=== PATIENT | male | born 1955 | race Caucasian/White ===

== ENCOUNTER 2023-11-21 07:36 | Inpatient (IN) | payer OTHER ==
[~2023-11-21] VITALS: Ht 167.6 cm; Wt 94.8 kg
[~2023-11-21 07:36] MED LIST: AMLO5TAB92 PO; ASPI-524 PO; CARV12.548 PO; CHLO25TA2 PO; DULA1.5P SQ; GABA-531 PO; GLIP10TA11 PO; LISI20TA30 PO; METF1000 PO; METR-154 PO; PRIM50TA PO; SIMV-43 PO
[2023-11-21 07:40] VITALS: BP_SYST 128; PULSE 96; RESP 18; TEMP 96.9; O2SAT 99
[2023-11-21] MEDS: ACETAMINOPHEN 325 MG TABLET PO ONE (08:18)
[2023-11-21 08:26] LABS: ANION GAP 7 (5-15); CALCIUM 9.6 mg/dL (8.4-11.0); CARBON DIOXIDE 29 mmol/L (23-29); CHLORIDE 101 mmol/L (98-107); CREATININE 1.15 mg/dL (0.55-1.30); GFR AFRICAN AMERICAN 81 mL/min (>90); GLUCOSE 211 mg/dL (74-106); POTASSIUM 4.4 mmol/L (3.5-5.1); SODIUM SERUM 137 mmol/L (136-145); UREA NITROGEN, BLOOD 21 mg/dL (8-21)
[2023-11-21 08:27] LABS: GFR NON AFRICAN-AMERICAN 67 mL/min (>90)
[2023-11-21 08:28] LABS: BASOPHILS % (AUTO) 0.4 % (0.0-2.0); EOSINOPHILS # (AUTO) 0.1 K/uL (0.0-0.4); EOSINOPHILS % (AUTO) 1.3 % (0.0-4.0); HEMATOCRIT 38.6 % (36-54); HEMOGLOBIN 13.3 g/dL (14.0-18.0); LYMPHOCYTES # (AUTO) 0.7 K/uL (1.0-5.5); LYMPHOCYTES % (AUTO) 12.7 % (20.5-51.5); MEAN CORPUSCULAR HEMOGLOBIN 30 pg (27-31); MEAN CORPUSCULAR HGB CONC 34 % (32-36); MEAN CORPUSCULAR VOLUME 87 fL (79.0-98.0); MONOCYTES # (AUTO) 0.4 K/uL (0.0-1.0); MONOCYTES % (AUTO) 7.8 % (1.7-9.3); NEUTROPHILS # (AUTO) 4.3 K/uL (1.8-7.7); NEUTROPHILS % (AUTO) 77.8 % (40.0-70.0); PLATELET COUNT (AUTO) 161 K/uL (130-430); RED BLOOD CELL COUNT(AUTO) 4.44 MIL/uL (4.2-6.2); RED CELL DISTRIBUTION WIDTH 14.1 % (9.0-15.0); WHITE BLOOD COUNT (AUTO) 5.5 K/uL (4.8-10.8)
[2023-11-21] MEDS: dilTIAZem HCL IVP 5 MG/ML VIAL IVP ONE (08:53)
[2023-11-21] MEDS: LIDOCAINE 1% 10 MG/ML, 20 ML MDV INJ ONE (09:38)
[2023-11-21] MEDS ORDERED: ACETAMINOPHEN 325 MG TABLET PO PRN (10:45)
[2023-11-21] MEDS ORDERED: ONDANSETRON HCL 4 MG/2 ML VIAL IVP PRN (10:45)
[2023-11-21] MEDS ORDERED: NALOXONE HCL 0.4 MG/ML AMP (NARCAN) IVP PRN ×2 (10:45)
[2023-11-21] MEDS ORDERED: HYDROcodone/ACETAMIN 10-325 MG TAB PO PRN (10:45)
[2023-11-21] MEDS ORDERED: LORazepam 2 MG/ML VIAL IVP PRN (10:45)
[2023-11-21] MEDS ORDERED: DULAGLUTIDE SQ SCH (10:45)
[2023-11-21] MEDS: ASPIRIN 81 MG TAB.CHEW PO ONE (11:52)
[2023-11-21] MEDS: amLODIPine BESYLATE 5 MG TABLET PO ONE (12:35)
[2023-11-21] MEDS: CHLORTHALIDONE 25 MG TABLET (HYGROTON) PO ONE (12:36)
[2023-11-21] MEDS: NORMAL SALINE 5 ML DISP.SYRIN IVF SCH (14:03)
[2023-11-21] MEDS: GABAPENTIN 300 MG CAPSULE PO SCH (15:00)
[2023-11-21] MEDS: CARVEDILOL 12.5 MG TABLET (COREG) PO ONE (15:13)
[2023-11-21] MEDS: lisinopriL 20 MG TABLET PO ONE (15:14)
[2023-11-21 15:36] VITALS: BP_SYST 130; PULSE 69; RESP 18; TEMP 98.1; O2SAT 98
[2023-11-21 15:53] VITALS: BP_SYST 130; PULSE 69; RESP 17; TEMP 98.1; O2SAT 98
[2023-11-21 19:51] VITALS: BP_SYST 123; PULSE 65; RESP 20; TEMP 97.3; O2SAT 98
[2023-11-21] MEDS: PRIMIDONE 50 MG TABLET PO SCH (20:17)
[2023-11-21] MEDS: SIMVASTATIN 20 MG TABLET PO SCH (20:17)
[2023-11-21] MEDS: HYDROcodone/ACETAMIN 5-325 MG TAB (NORCO/ VICODIN) PO PRN (20:18)
[2023-11-21] MEDS: metFORMIN HCL 500 MG TABLET PO SCH (20:18)
[2023-11-21] MEDS: metroNIDAZOLE 500 MG TABLET PO SCH (20:18)
[2023-11-21] MEDS: INSULIN REGULAR, HUMAN 100 UNITS/ML, 3 ML VIAL (humuLIN R) SUBCUT PRN (20:23)
[2023-11-22 02:53] VITALS: BP_SYST 147; PULSE 58; RESP 18; TEMP 97.1; O2SAT 97
[2023-11-22 05:49] LABS: BASOPHILS % (AUTO) 0.4 % (0.0-2.0); EOSINOPHILS # (AUTO) 0.1 K/uL (0.0-0.4); EOSINOPHILS % (AUTO) 2.6 % (0.0-4.0); HEMATOCRIT 36.1 % (36-54); HEMOGLOBIN 12.5 g/dL (14.0-18.0); LYMPHOCYTES % (AUTO) 21.6 % (20.5-51.5); MEAN CORPUSCULAR HEMOGLOBIN 30 pg (27-31); MEAN CORPUSCULAR HGB CONC 35 % (32-36); MEAN CORPUSCULAR VOLUME 87 fL (79.0-98.0); MONOCYTES # (AUTO) 0.4 K/uL (0.0-1.0); MONOCYTES % (AUTO) 9.8 % (1.7-9.3); NEUTROPHILS % (AUTO) 65.6 % (40.0-70.0); PLATELET COUNT (AUTO) 139 K/uL (130-430); RED BLOOD CELL COUNT(AUTO) 4.16 MIL/uL (4.2-6.2); WHITE BLOOD COUNT (AUTO) 4.6 K/uL (4.8-10.8)
[2023-11-22 07:13] LABS: CALCIUM 8.6 mg/dL (8.4-11.0); POTASSIUM 3.3 mmol/L (3.5-5.1)
[2023-11-22 07:51] VITALS: BP_SYST 135; PULSE 67; RESP 18; TEMP 97.1; O2SAT 98
[2023-11-22] MEDS: ASPIRIN 81 MG TAB.CHEW PO SCH (08:33)
[2023-11-22] MEDS: amLODIPine BESYLATE 5 MG TABLET PO SCH (08:34)
[2023-11-22] MEDS: CARVEDILOL 12.5 MG TABLET (COREG) PO SCH (08:34)
[2023-11-22] MEDS: lisinopriL 20 MG TABLET PO SCH (08:34)
[2023-11-22] MEDS: CHLORTHALIDONE 25 MG TABLET (HYGROTON) PO SCH (08:35)
[2023-11-22 09:35] VITALS: O2SAT 97
[2023-11-22] MEDS: POTASSIUM CHLORIDE 20 MEQ TABLET.ER PO ONE (11:10)
[2023-11-22] MEDS: METOPROLOL TARTRATE 25 MG TABLET PO ONE (11:10)
[2023-11-22 11:23] VITALS: BP_SYST 108; PULSE 67; RESP 16; TEMP 96.3; O2SAT 98
[2023-11-22 15:23] VITALS: BP_SYST 102; PULSE 69; RESP 16; TEMP 96.7; O2SAT 99
[2023-11-22 20:00] VITALS: BP_SYST 121; PULSE 68; RESP 18; TEMP 96; O2SAT 96
[2023-11-22] MEDS: METOPROLOL TARTRATE 25 MG TABLET PO SCH (21:42)
[2023-11-23 00:17] VITALS: BP_SYST 120; PULSE 70; RESP 18; TEMP 98.7; O2SAT 96
[2023-11-23 06:51] LABS: BASOPHILS % (AUTO) 0.4 % (0.0-2.0); EOSINOPHILS # (AUTO) 0.1 K/uL (0.0-0.4); EOSINOPHILS % (AUTO) 3.1 % (0.0-4.0); HEMOGLOBIN 12.8 g/dL (14.0-18.0); LYMPHOCYTES # (AUTO) 0.9 K/uL (1.0-5.5); LYMPHOCYTES % (AUTO) 20.1 % (20.5-51.5); MEAN CORPUSCULAR HEMOGLOBIN 30 pg (27-31); MEAN CORPUSCULAR HGB CONC 34 % (32-36); MEAN CORPUSCULAR VOLUME 87 fL (79.0-98.0); MONOCYTES # (AUTO) 0.5 K/uL (0.0-1.0); MONOCYTES % (AUTO) 10.6 % (1.7-9.3); NEUTROPHILS # (AUTO) 2.9 K/uL (1.8-7.7); NEUTROPHILS % (AUTO) 65.8 % (40.0-70.0); PLATELET COUNT (AUTO) 143 K/uL (130-430); RED BLOOD CELL COUNT(AUTO) 4.28 MIL/uL (4.2-6.2); RED CELL DISTRIBUTION WIDTH 13.7 % (9.0-15.0); WHITE BLOOD COUNT (AUTO) 4.5 K/uL (4.8-10.8)
[2023-11-23 07:10] LABS: ALBUMIN 3.4 g/dL (3.4-4.8); CALCIUM 9.6 mg/dL (8.4-11.0); CREATININE 1.09 mg/dL (0.55-1.30); THYROID STIMULATING HORMONE 1.58 uIu/mL (0.34-4.82); TOTAL BILIRUBIN 0.9 mg/dL (0.0-1.0); TOTAL PROTEIN, SERUM 6.6 g/dL (6.4-8.3)
[2023-11-23 07:37] VITALS: BP_SYST 107; PULSE 66; RESP 18; TEMP 96.7; O2SAT 97
[2023-11-23 07:42] VITALS: O2SAT 97
[2023-11-23] MEDS ORDERED: METO25TA6 PO (10:59)
[2023-11-23 11:20] VITALS: BP_SYST 113; PULSE 74; RESP 16; TEMP 96.9; O2SAT 94
[2023-11-23 12:58] VITALS: BP_SYST 122; PULSE 78; RESP 16; TEMP 96.8; O2SAT 97
[2023-11-23 12:59] VITALS: BP_SYST 122; PULSE 78; RESP 18; TEMP 96.8; O2SAT 97
== END 2023-11-23 13:45 | disposition home health service (06) | DRG 101 ==
LOC: SED 07:36 → STU 08:57
PROVIDERS: ADMIT Preventive Medicine Preventive Medicine/Occupational Environmental Medicine; ATTEND Preventive Medicine Preventive Medicine/Occupational Environmental Medicine
DX: G40.909 Epilepsy, unspecified, not intractable, without status epilepticus (principal); N17.9 Acute kidney failure, unspecified; I48.0 Paroxysmal atrial fibrillation; D64.9 Anemia, unspecified; D72.819 Decreased white blood cell count, unspecified; S01.81XA Laceration without foreign body of other part of head, initial encounter; E11.22 Type 2 diabetes mellitus with diabetic chronic kidney disease; E11.40 Type 2 diabetes mellitus with diabetic neuropathy, unspecified; E11.65 Type 2 diabetes mellitus with hyperglycemia; E78.1 Pure hyperglyceridemia; E83.41 Hypermagnesemia; I12.9 Hypertensive chronic kidney disease with stage 1 through stage 4 chronic kidney disease, or unspecified chronic kidney disease; I48.91 Unspecified atrial fibrillation; N18.30 Chronic kidney disease, stage 3 unspecified; W18.30XA Fall on same level, unspecified, initial encounter; Y93.89 Activity, other specified; Y92.89 Other specified places as the place of occurrence of the external cause; Y99.8 Other external cause status; Z79.82 Long term (current) use of aspirin; Z79.84 Long term (current) use of oral hypoglycemic drugs; Z79.899 Other long term (current) drug therapy; Z85.46 Personal history of malignant neoplasm of prostate; Z86.73 Personal history of transient ischemic attack (TIA), and cerebral infarction without residual deficits; Z90.49 Acquired absence of other specified parts of digestive tract; Z88.8 Allergy status to other drugs, medicaments and biological substances
CPT/HCPCS: 36415; 70450-TC; 71045; 80048; 80053; 80061; 82948; 83735; 83880; 84443; 84484; 85025; 93005; 96374; 97116-GP; 97530-GP; 99285; G0378; J2001; J3490